=== PATIENT | female | born 1980 | race Two or more races ===

== ENCOUNTER 2021-12-25 18:03 | Emergency (ER) | payer BC, OTHER ==
[~2021-12-25] VITALS: Ht 180.3 cm; Wt 99.8 kg
[2021-12-25 21:09] VITALS: BP 133/75
== END 2021-12-25 20:51 | disposition home or self-care (01) ==
LOC: ER 18:06
DX: U07.1 COVID-19 (principal); J40 Bronchitis, not specified as acute or chronic; F12.10 Cannabis abuse, uncomplicated
CPT/HCPCS: 71046